=== PATIENT | female | born 1995 | race Caucasian/White ===

== ENCOUNTER 2020-07-16 02:00 | Inpatient (IN) | payer MEDICAID ==
[~2020-07-16] VITALS: Ht 180.3 cm; Wt 98.0 kg
[2020-07-16] MEDS ORDERED: PHISODERM TOP SOLN 240ML BTL TOP PRN (03:00)
[2020-07-16] MEDS ORDERED: PROMETHAZINE HCL 25 MG/ML 1ML IM PRN (03:00)
[2020-07-16] MEDS ORDERED: PENICILLIN G POT 5MIL/D5 50ML 50 ML IV ONE (03:00)
[2020-07-16] MEDS ORDERED: LIDOCAINE 2%HCL (LOCAL ANESTH.) INJ 20ML MDV IJ ONE (03:00)
[2020-07-16] MEDS ORDERED: LACTATED RINGER'S 1,000 ML IV SCH (03:00)
[2020-07-16] MEDS ORDERED: BUTORPHANOL TARTRATE 2 MG/1 ML VIAL IV PRN ×2 (03:00)
[2020-07-16] MEDS ORDERED: DERMOPLAST 60ML BOTTLE TOP PRN (03:00)
[2020-07-16] MEDS ORDERED: WITCH HAZEL-GLYCERIN PAD TOP PRN (03:00)
[2020-07-16 03:06] LABS: Amphetamine Screen, Urine NEGATIVE (NEGATIVE); Barbiturate Scree,Urine NEGATIVE (NEGATIVE); Benzodiazephine Screen, Urine NEGATIVE (NEGATIVE); Cannabinoid Screen, Urine POSITIVE (NEGATIVE); Cocaine Screen, Urine NEGATIVE (NEGATIVE); Opiate Scree,Urine NEGATIVE (NEGATIVE); Phencyclidine Screen, Urine NEGATIVE (NEGATIVE)
[2020-07-16 03:51] LABS: Basophils # (auto) 0.2 10 ^3/uL (0-0.2); Basophils % (auto) 0.9 % (0.0-2.0); Eosinophils # (auto) 0.1 10 ^3/uL (0-0.8); Eosinophils % (auto) 0.4 % (0.0-7.0); Hematocrit 39.1 % (36.0-46.0); Hemoglobin 13.1 g/dL (12.2-16.2); Lymphocytes # (auto) 2.1 10 ^3/uL (0.4-5.4); Lymphocytes % (auto) 13.1 % (10.0-50.0); Mean Corpuscular Hemoglobin 29.7 pg (28.0-32.0); Mean Corpuscular Hgb Conc. 33.6 g/dL (32.0-36.0); Mean Corpuscular Volume 88.4 fL (80.0-100.0); Monocytes # (auto) 0.9 10 ^3/uL (0-1.3); Monocytes % (auto) 5.5 % (0.0-12.0); Neutrophils # (auto) 13.1 10 ^3/uL (1.6-8.6); Neutrophils % (auto) 80.1 % (37.0-80.0); Nucleated Red Blood Cells % 0.1 %; Platelet Count (auto) 284 10^3/uL (140-450); Red Blood Cells 4.42 10^6/uL (4.0-5.20); Red Cell Distribution Width 14.4 % (11.8-14.3); White Blood Cell 16.4 10^3/uL (4.4-10.8)
[2020-07-16 04:06] LABS: INR 0.89 (0.9-1.15); Partial Thromboplastin Time 24.9 sec (23.0-31.2)
[2020-07-16 04:08] LABS: Calcium 8.7 mg/dL (8.5-10.1); Potassium 3.9 mmol/L (3.5-5.1)
[2020-07-16 04:11] LABS: Bilirubin, Total 0.2 mg/dL (0.2-1.0); Total Protein 7.1 g/dL (6.4-8.2); Uric Acid 4.3 mg/dL (2.6-6.0)
[2020-07-16] MEDS ORDERED: LABETALOL HCL 200 MG TAB PO ONE (04:30)
[2020-07-16] MEDS ORDERED: hydrALAZINE HCL 20 MG/ML VL IV PRN (04:30)
[2020-07-16] MEDS ORDERED: OXYTOCIN 10UNIT/ML 1ML VIAL IM ONE (04:30)
[2020-07-16] MEDS ORDERED: TERBUTALINE SULFATE 1 MG/ML 1ML VIAL SC ONE (04:30)
[2020-07-16] MEDS ORDERED: LACT. RINGERS/OXYTOCIN 20UNITS 1,000 ML IV ONE (04:30)
[2020-07-16] MEDS ORDERED: LACT. RINGERS/OXYTOCIN 20UNITS 1,000 ML IV SCH (04:30)
[2020-07-16 04:31] LABS: BUN/Creatinine Ratio 11.3
[2020-07-16] MEDS ORDERED: miSOPROStol 100 mcg TAB ONE (05:12)
[2020-07-16] MEDS ORDERED: miSOPROStol 50 MCG per PRE-CUT 1/2 TAB SL ONE (05:45)
[2020-07-16] MEDS ORDERED: miSOPROStol 50 MCG per PRE-CUT 1/2 TAB PR PRN (05:45)
--- NOTE | 2020-07-16 06:25 | NUR ---
Ambulation: Patient OOB with standby assistance by RN. Patient ambulated to bathroom with steady gait. Patient able to void without difficulty. Void 800ml of yellow urine. No clots noted. Pericare teaching provided with returned demonstration by patient. Clean gown provided and bed linen changed. Patient ambulated back to bed with steady gait and no distress noted. Educated on need to call for assistance for second void. Fundal massage performed. Patient moderate amount of bright red bleeding noted. Fundus 1 below, firm with massage. Pitocin infusing as per order. EBL after ambulation 156 ml.
[2020-07-16] MEDS ORDERED: ACETAMINOPHEN 325 MG TAB PO PRN (07:00)
[2020-07-16] MEDS ORDERED: PENICILLIN G POTASSIUM 2,500,000 UNITS in D5W 5% 50 ML IV SCH (07:00)
[2020-07-16] MEDS: IBUPROFEN 600 MG TAB PO PRN (07:24)
[2020-07-16] MEDS ORDERED: DOCUSATE CALCIUM 240 MG CAP PO SCH (10:00)
--- NOTE | 2020-07-16 10:58 | NUR ---
Second ambulation: Patient ambulated without difficulty/steady gait to bathroom with standby assist of RN. Void 600ml of urine. Pericare performed independently. No clots noted with void. Patient ambulated back to bed. No distress noted. Pain 10/05. Tolerable. Educated on need to massage fundus to reduce the risk of bleeding. Verbalized understanding.
[2020-07-16 11:00] VITALS: BP 129/75
[2020-07-16 15:00] VITALS: BP 120/69
--- NOTE | 2020-07-16 15:46 | NUR ---
Assessment Social service consult regarding positive drug screen for THC and no care. Baby positive for drug screen. Discussed with patient UDS and source of positive results. Per patient she consumed THC during her whole due to her wisdom teeth hurting and not being able to take any medication. Patient states she would take her vitamins once or twice a week. Patient significant other Satya will assist with baby upon discharge. Patient has all supplies as well as car seat for baby and will be . Patient has transportation home upon discharge. Pt has medical insurance for herself and baby and will be following up with provider appt post discharge Due to positive drug screen CPS contacted and report made to DAGOBERTO Crocker, number: [phone].
[2020-07-16 19:00] VITALS: BP 123/78
[2020-07-16 23:15] VITALS: BP 137/96
[2020-07-17 03:25] VITALS: BP 132/82
[2020-07-17 04:06] LABS: Rubella Antibodies, IgG 1.19 index (Immune >0.99)
[2020-07-17 05:11] LABS: RPR Non Reactive (Non Reactive)
[2020-07-17] MEDS: IBUPROFEN 600 MG TAB PO PRN ×2 (07:50→17:02)
[2020-07-17 11:00] VITALS: BP 121/69
[2020-07-17 15:10] VITALS: BP 128/85
--- NOTE | 2020-07-17 16:00 | NUR ---
Discharge: Discharge instructions given as ordered. Pt encouraged to follow up with [employer] TECHNICIAN as instructed. All questions and concerns addressed. Patient verbalized understanding. Medication reconciliation completed and copy given to patient. All required/requested vaccines given and copies of vaccinations given to patient. Patient encouraged to prepare to depart unit.
[2020-07-17] MEDS ORDERED: PREN-96 PO (16:15)
--- NOTE | 2020-07-17 18:03 | NUR ---
Discharge: Patient taken to vehicle via wheelchair with all personal belongings, accompanied by staff and family member. No distress noted at time of departure, no adverse changes in status since initial assessment.
== END 2020-07-17 18:03 | disposition home or self-care (01) | DRG 560 ==
LOC: LDRP 02:00 → OBSVTOIN 02:00 → LDRP 04:18
PROVIDERS: ADMIT Obstetrics & Gynecology; ATTEND Obstetrics & Gynecology
PROC: 10E0XZZ Delivery of Products of Conception, External Approach (ICD-10-PCS; principal; 2020-07-16)
PROC: 0KQM0ZZ Repair Perineum Muscle, Open Approach (ICD-10-PCS; 2020-07-16)
PROC: 0W8NXZZ Division of Female Perineum, External Approach (ICD-10-PCS; 2020-07-16)
DX: O69.1XX0 Labor and delivery complicated by cord around neck, with compression, not applicable or unspecified (principal); O99.324 Drug use complicating childbirth; O70.1 Second degree perineal laceration during delivery; O62.3 Precipitate labor; F12.90 Cannabis use, unspecified, uncomplicated; Z3A.39 39 weeks gestation of pregnancy; Z37.0 Single live birth; Z20.828 Contact with and (suspected) exposure to other viral communicable diseases
CPT/HCPCS: 36415; 59025; 59409; 76805; 80053; 80307; 81002; 84112; 84550; 85025; 85610; 85730; 86592; 86703; 86762; 86850; 86900; 86901; 87340; 87426; 96361; 96366; 96374; G0378; J2540; J2590; J7060

== ENCOUNTER 2020-09-02 21:00 | Emergency (ER) | payer MEDICAID ==
[~2020-09-02] VITALS: Ht 180.3 cm; Wt 83.9 kg
[~2020-09-02 21:00] MED LIST: PREN-96 PO
[2020-09-02 22:39] LABS: Basophils # (auto) 0 10 ^3/uL (0-0.2); Basophils % (auto) 0.6 % (0.0-2.0); Eosinophils # (auto) 0.1 10 ^3/uL (0-0.8); Eosinophils % (auto) 1.6 % (0.0-7.0); Hemoglobin 13.3 g/dL (12.2-16.2); Lymphocytes # (auto) 2.3 10 ^3/uL (0.4-5.4); Lymphocytes % (auto) 33.9 % (10.0-50.0); Mean Corpuscular Hemoglobin 28.5 pg (28.0-32.0); Mean Corpuscular Hgb Conc. 32.4 g/dL (32.0-36.0); Monocytes # (auto) 0.5 10 ^3/uL (0-1.3); Monocytes % (auto) 7.9 % (0.0-12.0); Neutrophils # (auto) 3.8 10 ^3/uL (1.6-8.6); Nucleated Red Blood Cells % 0.1 %; Platelet Count (auto) 268 10^3/uL (140-450); Red Blood Cells 4.65 10^6/uL (4.0-5.20); Red Cell Distribution Width 15.7 % (11.8-14.3); White Blood Cell 6.7 10^3/uL (4.4-10.8)
[2020-09-02 22:57] LABS: Albumin 3.7 g/dL (3.4-5.0); BUN/Creatinine Ratio 15.9; Calcium 8.8 mg/dL (8.5-10.1); Potassium 3.8 mmol/L (3.5-5.1)
[2020-09-02 23:00] LABS: Bilirubin, Total 0.3 mg/dL (0.2-1.0); Total Protein 7.4 g/dL (6.4-8.2)
[2020-09-02 23:01] LABS: INR 1.03 (0.9-1.15)
[2020-09-03 00:48] VITALS: BP 145/103
== END 2020-09-03 00:59 | disposition home or self-care (01) ==
LOC: ER 21:00
DX: O72.1 Other immediate postpartum hemorrhage (principal); N93.0 Postcoital and contact bleeding; R10.9 Unspecified abdominal pain; M54.5 Low back pain
CPT/HCPCS: 36415; 76856; 80053; 84702; 85025; 85610

== ENCOUNTER 2021-06-08 05:45 | Inpatient (IN) | payer MEDICAID ==
[~2021-06-08] VITALS: Ht 180.3 cm; Wt 116.1 kg
[2021-06-08] MEDS ORDERED: LIDOCAINE 2%HCL (LOCAL ANESTH.) INJ 20ML MDV ONE (06:00)
[2021-06-08] MEDS ORDERED: LACT. RINGERS/OXYTOCIN 20UNITS 1,000 ML IV ONE (06:01)
[2021-06-08] MEDS ORDERED: METHYLERGONOVINE MALEATE 0.2 MG/ML AMP IM ONE (06:01)
[2021-06-08] MEDS ORDERED: LACT. RINGERS/OXYTOCIN 20UNITS 500 ML IV ONE ×4 (06:30→07:45)
[2021-06-08] MEDS ORDERED: LIDOCAINE 2%HCL (LOCAL ANESTH.) INJ 20ML MDV IJ PRN (06:30)
[2021-06-08] MEDS: LACTATED RINGER'S 1,000 ML IV SCH ×3 (06:30→22:30)
[2021-06-08] MEDS ORDERED: SODIUM CHLORIDE 0.9% 1,000 ML IV SCH (06:45)
[2021-06-08] MEDS ORDERED: MAGNESIUM SULFATE 40MG/ML 1,000 ML IV SCH (06:45)
[2021-06-08] MEDS ORDERED: MAGNESIUM SULFATE 100 ML IV ONE (06:45)
[2021-06-08 07:40] LABS: Basophils # (auto) 0.1 10 ^3/uL (0-0.2); Eosinophils # (auto) 0 10 ^3/uL (0-0.8); Eosinophils % (auto) 0.2 % (0.0-7.0); Lymphocytes # (auto) 1.4 10 ^3/uL (0.4-5.4); Monocytes # (auto) 0.9 10 ^3/uL (0-1.3); Red Cell Distribution Width 14.5 % (11.8-14.3)
[2021-06-08 07:42] LABS: Basophils % (auto) 0.4 % (0.0-2.0); Hematocrit 32.3 % (36.0-46.0); Hemoglobin 10.7 g/dL (12.2-16.2); Lymphocytes % (auto) 7.3 % (10.0-50.0); Mean Corpuscular Hemoglobin 25.7 pg (28.0-32.0); Mean Corpuscular Hgb Conc. 33.1 g/dL (32.0-36.0); Mean Corpuscular Volume 77.6 fL (80.0-100.0); Monocytes % (auto) 4.4 % (0.0-12.0); Neutrophils # (auto) 17.1 10 ^3/uL (1.6-8.6); Neutrophils % (auto) 87.7 % (37.0-80.0); Red Blood Cells 4.16 10^6/uL (4.0-5.20); White Blood Cell 19.5 10^3/uL (4.4-10.8)
[2021-06-08 07:57] LABS: INR 0.96 (0.9-1.15); Partial Thromboplastin Time 24.7 sec (23.6-33.0)
[2021-06-08] MEDS: LABETALOL HCL 200 MG TAB PO SCH ×2 (07:57→22:19)
[2021-06-08 07:58] LABS: Calcium 8.3 mg/dL (8.5-10.1); Potassium 3.8 mmol/L (3.5-5.1)
[2021-06-08 08:03] LABS: Albumin 2.1 g/dL (3.4-5.0); BUN/Creatinine Ratio 11.9; Bilirubin, Total 0.1 mg/dL (0.2-1.0); Total Protein 6.3 g/dL (6.4-8.2)
[2021-06-08] MEDS: DERMOPLAST 60ML BOTTLE TOP PRN (08:46)
[2021-06-08] MEDS: PHISODERM TOP SOLN 240ML BTL TOP PRN (08:47)
[2021-06-08] MEDS: WITCH HAZEL-GLYCERIN PAD TOP PRN (08:47)
[2021-06-08 12:02] LABS: Urine Bacteria MOD /hpf (None Seen); Urine Blood 3+ /uL (Negative); Urine Specific Gravity 1.002 (1.001-1.035); Urine WBC 15 /hpf (0 - 5)
[2021-06-08] MEDS: IBUPROFEN 600 MG TAB PO PRN ×3 (12:10→23:05)
[2021-06-08 12:13] LABS: Amphetamine Screen, Urine NEGATIVE (NEGATIVE); Barbiturate Scree,Urine NEGATIVE (NEGATIVE); Benzodiazephine Screen, Urine NEGATIVE (NEGATIVE); Cannabinoid Screen, Urine NEGATIVE (NEGATIVE)
[2021-06-08 12:16] LABS: Cocaine Screen, Urine NEGATIVE (NEGATIVE); Opiate Scree,Urine NEGATIVE (NEGATIVE); Phencyclidine Screen, Urine NEGATIVE (NEGATIVE)
[2021-06-08 12:17] LABS: Protein, Urine 62.8 mg/dL (0.0-11.9)
[2021-06-08] MEDS: ACETAMINOPHEN 325 MG TAB PO PRN (14:02)
[2021-06-08 17:51] LABS: Amphetamine Screen, Urine NEGATIVE (NEGATIVE); Barbiturate Scree,Urine NEGATIVE (NEGATIVE); Benzodiazephine Screen, Urine NEGATIVE (NEGATIVE); Cannabinoid Screen, Urine NEGATIVE (NEGATIVE); Cocaine Screen, Urine NEGATIVE (NEGATIVE); Opiate Scree,Urine NEGATIVE (NEGATIVE); Phencyclidine Screen, Urine NEGATIVE (NEGATIVE)
[2021-06-08 19:00] VITALS: BP 134/77
[2021-06-08 23:10] VITALS: BP 108/73
[2021-06-09 03:00] VITALS: BP 121/75
[2021-06-09 07:30] VITALS: BP 121/74
[2021-06-09] MEDS: ACETAMINOPHEN 325 MG TAB PO PRN (09:17)
[2021-06-09 10:30] VITALS: BP 121/71
[2021-06-09] MEDS: LABETALOL HCL 200 MG TAB PO SCH (10:38)
[2021-06-09] MEDS: WITCH HAZEL-GLYCERIN PAD TOP PRN (10:42)
[2021-06-09] MEDS: PHISODERM TOP SOLN 240ML BTL TOP PRN (10:42)
[2021-06-09] MEDS: DERMOPLAST 60ML BOTTLE TOP PRN (10:42)
== END 2021-06-09 09:47 | disposition home or self-care (01) | DRG 560 ==
LOC: LDRP 05:45 → OBSVTOIN 06:20 → LDRP 08:14
PROVIDERS: ADMIT Obstetrics & Gynecology; ATTEND Obstetrics & Gynecology
PROC: 10E0XZZ Delivery of Products of Conception, External Approach (ICD-10-PCS; principal; 2021-06-08)
DX: O80 Encounter for full-term uncomplicated delivery (principal); Z37.0 Single live birth; Z20.822 Contact with and (suspected) exposure to COVID-19; Z3A.39 39 weeks gestation of pregnancy
CPT/HCPCS: 36415; 59025; 59409; 80053; 80307; 80320; 81001; 81002; 82570; 84112; 84156; 84550; 85025; 85610; 85730; 86592; 86703; 86762; 86850; 86900; 86901; 87340; 87426; 94760; 96360; 96365; 96366; G0378; J2590